=== PATIENT | female | born 1965 | race African-American/Black ===

== ENCOUNTER → 2017-07-10 | Outpatient (CLI) | payer BC ==
--- NOTE | 2017-07-10 13:03 | CARD ---
APPROVED REPORT EXAM: Two-dimensional and M-mode echocardiogram with Doppler and color Doppler. Other Information Quality : GoodHR: 58bpm Rhythm : Bradycardia INDICATION Abnormal ECG RISK FACTORS Hypertension 2D DIMENSIONS RVDd3.0 (2.9-3.5cm)Left Atrium(2D)3.6 (1.6-4.0cm) IVSd1.0 (0.7-1.1cm)Aortic Root(2D)2.7 (2.0-3.7cm) LVDd4.2 (3.9-5.9cm)LVOT Diameter2.2 (1.8-2.4cm) PWd1.0 (0.7-1.1cm)LVDs2.8 (2.5-4.0cm) FS (%) 33.6 %SV49.4 ml LVEF(%)62.8 (>50%) Aortic Valve AoV Peak Jaylen.150.4cm/sAoV VTI33.6cm AO Peak GR.9.1mmHgLVOT Peak Jaylen.113.7cm/s AO Mean GR.5mmHgAVA (VMAX)2.76cm2 AI P 1/2 Xekx148va Mitral Valve MV E Dwfkmviq99.3cm/sMV E Peak Gr.4mmHg MV DECEL [id number] A Qmpjqmrz879.4cm/s MV E Mean Gr.2mmHgE/A Ratio0.7 MV A Owrrczct04ji Pulmonary Valve PV Peak Utgkrfxd06.8cm/s Tricuspid Valve TR P. Wggojkhv906ne/sTR Peak Gr.28mmHg Pulmonary Vein S1 Wnshsxzn15.9cm/sD2 Bgpiychl97.7cm/s PVa [id number] LEFT VENTRICLE The left ventricle is normal size. There is normal left ventricular wall thickness. The left ventricu lar systolic function is normal. The Ejection Fraction is 60-65%. There is normal LV segmental wall m otion. Transmitral Doppler flow pattern is Grade I-abnormal relaxation pattern. RIGHT VENTRICLE The right ventricle is normal size. There is normal right ventricular wall thickness. The right ventr icular systolic function is normal. ATRIA The left atrium size is normal. The right atrium size is normal. The interatrial septum is intact wit h no evidence for an atrial septal defect or patent foramen ovale as noted on 2-D or Doppler imaging. AORTIC VALVE The aortic valve is mildly thickened. The aortic valve is trileaflet. Doppler and Color Flow revealed mild aortic regurgitation. There is no significant aortic valvular stenosis. MITRAL VALVE The mitral valve leaflets are mildly thickened. There is no evidence of mitral valve prolapse. There is no mitral valve stenosis. Doppler and Color Flow revealed mild mitral regurgitation. TRICUSPID VALVE Doppler and Color Flow revealed mild to moderate tricuspid regurgitation. The pulmonary artery systol ic pressure is estimated at 31 mmHg. There is mild pulmonary hypertension. PULMONIC VALVE The pulmonic valve is not well visualized but appears to open adequately. Doppler and Color Flow reve aled mild pulmonic valvular regurgitation. There is no pulmonic valvular stenosis by spectral Doppler . GREAT VESSELS The aortic root is normal in size. The ascending aorta is normal in size. The pulmonary artery is nor mal. The IVC is normal in size and collapses >50% with inspiration. PERICARDIAL EFFUSION There is no evidence of significant pericardial effusion. Critical Notification Critical Value: No <Conclusion> The left ventricular systolic function is normal. The Ejection Fraction is 60-65%. There is normal LV segmental wall motion. Transmitral Doppler flow pattern is Grade I-abnormal relaxation pattern. Mild aortic regurgitation. Mild mitral regurgitation. Mild to moderate tricuspid regurgitation. The pulmonary artery systolic pressure is estimated at 31 mmHg. There is no evidence of significant pericardial effusion.
== END | disposition home or self-care (01) ==
LOC: ECHO 11:12
PROVIDERS: ATTEND Internal Medicine Cardiovascular Disease
DX: I08.3 Combined rheumatic disorders of mitral, aortic and tricuspid valves (principal); R94.31 Abnormal electrocardiogram [ECG] [EKG]; R00.1 Bradycardia, unspecified
CPT/HCPCS: 93225; 93306

== ENCOUNTER 2018-06-22 14:25 | Inpatient (IN) | payer BC ==
[2018-06-22 15:11] LABS: ANION GAP 14 (6-14); BLOOD UREA NITROGEN 46 mg/dL (7-20); BUN/CREATININE RATIO 9 (6-20); CALCIUM 9.5 mg/dL (8.5-10.1); CARBON DIOXIDE 21 mmol/L (21-32); CHLORIDE 105 mmol/L (98-107); CREATININE 5.3 mg/dL (0.6-1.0); GFR 10.3; GLUCOSE 97 mg/dL (70-99); POTASSIUM 3.2 mmol/L (3.5-5.1); SODIUM 140 mmol/L (136-145)
[2018-06-22 15:17] LABS: ALBUMIN 3.1 g/dL (3.4-5.0); ALBUMIN/GLOBULIN RATIO 0.8 (1.0-1.7); ALK PHOS 292 U/L (46-116); ALT (SGPT) 97 U/L (14-59); AST (SGOT) 72 U/L (15-37); MAGNESIUM 1.9 mg/dL (1.8-2.4); TOTAL BILIRUBIN 0.4 mg/dL (0.2-1.0); TOTAL PROTEIN 7.1 g/dL (6.4-8.2)
[2018-06-22 15:22] LABS: ADD MAN DIFF? NO
[2018-06-22 15:27] LABS: NT-PRO BNP 27656 pg/mL (0-124)
[2018-06-22 15:27] LABS: CKMB INDEX 1.3 % (0-4); CKMB MASS 2.2 ng/mL (0.0-3.6); CREATINE KINASE 164 U/L (26-192)
[2018-06-22 15:28] LABS: BASO # 0.1 x10^3/uL (0.0-0.2); BASO % 1 % (0-3); EOS # 0.2 x10^3/uL (0.0-0.7); EOS % 2 % (0-3); HEMATOCRIT 28.6 % (36.0-47.0); HEMOGLOBIN 9.4 g/dL (12.0-15.5); LYMPH # 1.3 x10^3/uL (1.0-4.8); LYMPH % 17 % (24-48); MEAN CORPUSCULAR HEMOGLOBIN 28 pg (25-35); MEAN CORPUSCULAR HGB CONC 33 g/dL (31-37); MEAN CORPUSCULAR VOLUME 85 fL (79-100); MONO # 0.7 x10^3/uL (0.0-1.1); MONO % 9 % (0-9); NEUT # 5.8 x10^3uL (1.8-7.7); NEUT % 72 % (31-73); PLATELET COUNT 239 x10^3/uL (140-400); RED BLOOD COUNT 3.38 x10^6/uL (3.50-5.40); RED CELL DISTRIBUTION WIDTH 17.4 % (11.5-14.5); WHITE BLOOD COUNT 8.2 x10^3/uL (4.0-11.0)
[2018-06-22 15:36] LABS: INR 1.1 (0.8-1.1); PROTHROMBIN TIME PATIENT 13.2 SEC (11.7-14.0)
[2018-06-22] MEDS: cloNIDine HCL 0.1 MG TABLET PO (15:36)
[2018-06-22] MEDS: LABETALOL 20 MG/4 ML DISP.SYRIN. IVP (15:37)
[2018-06-22] MEDS: NITROGLYCERIN PREMIX 250 ML IV (15:45)
[2018-06-22] MEDS: FUROSEMIDE 40 MG/4 ML VIAL. IVP (16:07)
[2018-06-22 17:02] LABS: BILIRUBIN,URINE NEGATIVE (NEG); CLARITY,URINE CLEAR; COLOR,URINE YELLOW; GLUCOSE,URINE NEGATIVE (NEG); NITRITE,URINE NEGATIVE (NEG); PROTEIN,URINE >=300 mg/dL (NEG-TRACE); UROBILINOGEN,URINE 0.2 mg/dL (0.2 mg/dL)
[2018-06-22 17:06] LABS: BACTERIA,URINE MANY /HPF (0-FEW); RBC,URINE OCC /HPF (0-2); SQUAMOUS EPITHELIAL CELL,UR FEW /LPF
[2018-06-22] MEDS: ACETAMINOPHEN 325 MG TABLET. PO (17:51)
[2018-06-22 19:48] LABS: BARBITURATES NEG (NEG); BENZODIAZEPINES NEG (NEG); CANNABINOIDS NEG (NEG); COCAINE NEG (NEG); METHADONE NEG (NEG); OPIATES NEG (NEG); PHENCYCLIDINE NEG (NEG)
[2018-06-22 19:49] LABS: AMPHETAMINE/METHAMPHETAMINE NEG (NEG); ETHANOL, URINE NEG (NEG)
[2018-06-22] MEDS ORDERED: NON FORMULARY ITEM (Albuterol Sulfate (Proair Hfa Inhaler) 2 PUFF) INH (20:00)
[2018-06-22] MEDS: cloNIDine HCL 0.3 MG TABLET PO (20:26)
[2018-06-22] MEDS ORDERED: hydrALAZINE 25 MG TABLET PO (21:00)
[2018-06-22] MEDS: hydrALAZINE 25 MG TABLET PO (21:09)
[2018-06-22] MEDS: ISOSORBIDE DINITRATE 10 MG TABLET. PO (21:09)
[2018-06-22] MEDS: hydrALAZINE 20 MG/ML VIAL. IVP (22:42)
[2018-06-23] MEDS: ALBUTEROL SULFATE 2.5 MG/3 ML NEBU. NEB ×5 (00:40→20:00)
[2018-06-23] MEDS: hydrALAZINE 20 MG/ML VIAL. IVP ×3 (03:54→15:51)
[2018-06-23] MEDS: ACETAMINOPHEN 500 MG TABLET PO ×2 (05:01→14:25)
[2018-06-23 06:31] LABS: ANION GAP 15 (6-14); BLOOD UREA NITROGEN 52 mg/dL (7-20); CALCIUM 8.7 mg/dL (8.5-10.1); CARBON DIOXIDE 21 mmol/L (21-32); CHLORIDE 104 mmol/L (98-107); CREATININE 5.2 mg/dL (0.6-1.0); GFR 10.5; GLUCOSE 101 mg/dL (70-99); POTASSIUM 3.2 mmol/L (3.5-5.1); SODIUM 140 mmol/L (136-145)
[2018-06-23] MEDS: amLODIPine BESYLATE 10 MG TABLET PO (07:52)
[2018-06-23] MEDS: ISOSORBIDE DINITRATE 10 MG TABLET. PO (07:52)
[2018-06-23] MEDS: cloNIDine HCL 0.3 MG TABLET PO ×2 (07:53→20:49)
[2018-06-23] MEDS: hydrALAZINE 25 MG TABLET PO ×3 (07:53→20:49)
[2018-06-23] MEDS: IV NORMAL SALINE 1000ML BAG 1,000 ML IV ×2 (07:54→20:50)
[2018-06-23] MEDS: POTASSIUM CHLORIDE 10 MEQ TABLET.ER. PO (07:54)
[2018-06-23] MEDS: BUDESONIDE 0.5 MG/2 ML NEBU. NEB ×2 (08:00→20:00)
[2018-06-23] MEDS: ALLOPURINOL 300 MG TABLET. PO (08:49)
[2018-06-23] MEDS: LABETALOL HCL 100 MG TABLET. PO ×2 (10:13→16:09)
[2018-06-23 19:19] LABS: TOTAL PROTEIN CREATININE RATIO 2894 mg/g creat (0-200); UR CREATININE RD 66.3 mg/dL (Not Estab.); UR PROTEIN RD 191.9 mg/dL (Not Estab.)
[2018-06-23] MEDS: LABETALOL HCL 200 MG TABLET PO (20:49)
[2018-06-24 05:06] LABS: ANION GAP 12 (6-14); BLOOD UREA NITROGEN 51 mg/dL (7-20); CALCIUM 8.4 mg/dL (8.5-10.1); CARBON DIOXIDE 21 mmol/L (21-32); CHLORIDE 109 mmol/L (98-107); CREATININE 5.2 mg/dL (0.6-1.0); GFR 10.5; GLUCOSE 116 mg/dL (70-99); POTASSIUM 3.6 mmol/L (3.5-5.1); SODIUM 142 mmol/L (136-145)
[2018-06-24] MEDS: IV NORMAL SALINE 1000ML BAG 1,000 ML IV ×2 (07:00→16:28)
[2018-06-24] MEDS: BUDESONIDE 0.5 MG/2 ML NEBU. NEB ×2 (07:01→19:53)
[2018-06-24] MEDS: ALBUTEROL SULFATE 2.5 MG/3 ML NEBU. NEB ×4 (07:01→19:53)
[2018-06-24] MEDS: hydrALAZINE 20 MG/ML VIAL. IVP (08:04)
[2018-06-24] MEDS: amLODIPine BESYLATE 10 MG TABLET PO (08:25)
[2018-06-24] MEDS: cloNIDine HCL 0.3 MG TABLET PO ×3 (08:25→20:57)
[2018-06-24] MEDS: REGADENOSON 0.4 MG/5 ML DISP.SYRIN. IV (08:30)
[2018-06-24 08:55] LABS: CHOLESTEROL 174 mg/dL (0-200); HDLC 50 mg/dL (40-60); LDLC 94 mg/dL (0-100); NON-HDL CHOLESTEROL 124 mg/dL (0-129); TRIGLYCERIDES 152 mg/dL (0-150); VLDLC 30 mg/dL (0-40)
[2018-06-24] MEDS ORDERED: REGADENOSON 0.4 MG/5 ML DISP.SYRIN. IV (09:00)
[2018-06-24 09:02] LABS: CHOLESTEROL/HDL RATIO 3.5
[2018-06-24] MEDS: ALPRAZolam 0.5 MG TABLET PO (09:38)
[2018-06-24] MEDS: CETIRIZINE HCL 10 MG TABLET. PO (11:41)
[2018-06-24] MEDS: LABETALOL HCL 200 MG TABLET PO ×3 (11:42→20:58)
[2018-06-24] MEDS: POTASSIUM CHLORIDE 10 MEQ TABLET.ER. PO (11:42)
[2018-06-25] MEDS: IV NORMAL SALINE 1000ML BAG 1,000 ML IV ×3 (00:08→19:45)
[2018-06-25 05:22] LABS: HEMATOCRIT 25.7 % (36.0-47.0); HEMOGLOBIN 8.3 g/dL (12.0-15.5); MEAN CORPUSCULAR HEMOGLOBIN 28 pg (25-35); MEAN CORPUSCULAR HGB CONC 32 g/dL (31-37); MEAN CORPUSCULAR VOLUME 87 fL (79-100); PLATELET COUNT 227 x10^3/uL (140-400); RED BLOOD COUNT 2.95 x10^6/uL (3.50-5.40); RED CELL DISTRIBUTION WIDTH 18.2 % (11.5-14.5); WHITE BLOOD COUNT 7.6 x10^3/uL (4.0-11.0)
[2018-06-25 05:43] LABS: ANION GAP 11 (6-14); BLOOD UREA NITROGEN 50 mg/dL (7-20); CALCIUM 8.3 mg/dL (8.5-10.1); CARBON DIOXIDE 16 mmol/L (21-32); CHLORIDE 111 mmol/L (98-107); CREATININE 5.1 mg/dL (0.6-1.0); GFR 10.7; GLUCOSE 119 mg/dL (70-99); SODIUM 138 mmol/L (136-145)
[2018-06-25] MEDS: cloNIDine HCL 0.3 MG TABLET PO ×3 (06:13→20:13)
[2018-06-25] MEDS: ALBUTEROL SULFATE 2.5 MG/3 ML NEBU. NEB ×4 (07:17→19:10)
[2018-06-25] MEDS: BUDESONIDE 0.5 MG/2 ML NEBU. NEB ×2 (07:17→19:10)
[2018-06-25] MEDS: amLODIPine BESYLATE 10 MG TABLET PO (09:03)
[2018-06-25] MEDS: LABETALOL HCL 200 MG TABLET PO ×2 (09:04→20:13)
[2018-06-25] MEDS ORDERED: LIDOCAINE 2% 20 ML VIAL. (11:09)
[2018-06-25] MEDS ORDERED: IODIXANOL 320 MG/ML 100 ML VIAL. (11:09)
[2018-06-25] MEDS ORDERED: VERAPAMIL 5 MG/2 ML VIAL. (11:38)
[2018-06-25] MEDS ORDERED: HEPARIN for IV BOLUS 10,000 UNIT/10 ML VIAL. ×2 (11:38→14:53)
[2018-06-25] MEDS ORDERED: MIDAZOLAM HCL/PF 2 MG/2 ML VIAL. (11:38)
[2018-06-25] MEDS ORDERED: NITROGLYCERIN 200 MCG/2 ML SYRINGE FOR CATH/VASC LAB. (11:38)
[2018-06-25] MEDS ORDERED: fentaNYL PF VIAL 100 MCG/2 ML VIAL (11:38)
[2018-06-25] MEDS ORDERED: CONTRAST GIVEN. MC (12:15)
[2018-06-25] MEDS: NITROGLYCERIN 200 MCG/2 ML SYRINGE FOR CATH/VASC LAB. IART (12:19)
[2018-06-25] MEDS: LIDOCAINE 2% 20 ML VIAL. IJ (12:19)
[2018-06-25] MEDS: IODIXANOL 320 MG/ML 100 ML VIAL. IART (12:19)
[2018-06-25] MEDS: VERAPAMIL 5 MG/2 ML VIAL. IART (12:21)
[2018-06-25] MEDS: MIDAZOLAM HCL/PF 2 MG/2 ML VIAL. IV (12:21)
[2018-06-25] MEDS: fentaNYL PF VIAL 100 MCG/2 ML VIAL IV (12:21)
[2018-06-25] MEDS: HEPARIN for IV BOLUS 10,000 UNIT/10 ML VIAL. IART (12:22)
[2018-06-25] MEDS: CETIRIZINE HCL 10 MG TABLET. PO (13:47)
[2018-06-25] MEDS ORDERED: LIDOCAINE WITH 8.4% SOD BICARB 3 ML DISP.SYRIN. (14:51)
[2018-06-25] MEDS: LIDOCAINE WITH 8.4% SOD BICARB 3 ML DISP.SYRIN. INJ (15:12)
[2018-06-26 05:21] LABS: ANION GAP 12 (6-14); BLOOD UREA NITROGEN 46 mg/dL (7-20); CALCIUM 8.4 mg/dL (8.5-10.1); CARBON DIOXIDE 19 mmol/L (21-32); CHLORIDE 111 mmol/L (98-107); CREATININE 4.9 mg/dL (0.6-1.0); GFR 11.3; GLUCOSE 125 mg/dL (70-99); POTASSIUM 3.9 mmol/L (3.5-5.1); SODIUM 142 mmol/L (136-145)
[2018-06-26] MEDS: cloNIDine HCL 0.3 MG TABLET PO ×3 (05:35→21:34)
[2018-06-26] MEDS: IV NORMAL SALINE 1000ML BAG 1,000 ML IV (05:35)
[2018-06-26] MEDS: ALBUTEROL SULFATE 2.5 MG/3 ML NEBU. NEB ×4 (08:35→20:25)
[2018-06-26] MEDS: BUDESONIDE 0.5 MG/2 ML NEBU. NEB ×2 (08:35→20:25)
[2018-06-26] MEDS: CETIRIZINE HCL 10 MG TABLET. PO (09:26)
[2018-06-26 10:18] LABS: HEPATITIS B SURFACE AG Nonreactive (Nonreactive)
[2018-06-26 10:37] LABS: HEPATITIS B SURFACE AB Nonreactive
[2018-06-26] MEDS: LABETALOL HCL 200 MG TABLET PO ×2 (12:55→21:34)
[2018-06-26] MEDS: amLODIPine BESYLATE 10 MG TABLET PO (12:56)
[2018-06-26] MEDS: SODIUM BICARBONATE 650 MG TABLET. PO ×2 (15:12→21:31)
[2018-06-26] MEDS: FUROSEMIDE 80 MG TABLET. PO (15:14)
[2018-06-26 16:28] LABS: ALBUMIN 2.3 g/dL (3.4-5.0)
[2018-06-27 05:36] LABS: PHOSPHORUS 5.5 mg/dL (2.6-4.7)
[2018-06-27 05:36] LABS: MAGNESIUM 1.9 mg/dL (1.8-2.4)
[2018-06-27] MEDS: cloNIDine HCL 0.3 MG TABLET PO ×3 (06:48→20:35)
[2018-06-27] MEDS: BUDESONIDE 0.5 MG/2 ML NEBU. NEB ×2 (07:27→19:40)
[2018-06-27] MEDS: ALBUTEROL SULFATE 2.5 MG/3 ML NEBU. NEB ×4 (07:27→19:40)
[2018-06-27] MEDS: FUROSEMIDE 80 MG TABLET. PO ×3 (09:00→16:49)
[2018-06-27 09:58] LABS: ANION GAP 16 (6-14); BLOOD UREA NITROGEN 52 mg/dL (7-20); CALCIUM 8.7 mg/dL (8.5-10.1); CARBON DIOXIDE 14 mmol/L (21-32); CHLORIDE 109 mmol/L (98-107); CREATININE 5.5 mg/dL (0.6-1.0); GFR 9.8; GLUCOSE 125 mg/dL (70-99); SODIUM 139 mmol/L (136-145)
[2018-06-27] MEDS: amLODIPine BESYLATE 10 MG TABLET PO (10:12)
[2018-06-27] MEDS: CETIRIZINE HCL 10 MG TABLET. PO (10:14)
[2018-06-27] MEDS: SODIUM BICARBONATE 650 MG TABLET. PO ×3 (10:14→20:33)
[2018-06-27] MEDS: LABETALOL HCL 200 MG TABLET PO ×2 (10:15→20:34)
[2018-06-27] MEDS: SODIUM BICARB ADULT 8.4% 50 MEQ/50 ML DISP.SYRIN. IV ×2 (12:06→14:45)
[2018-06-27] MEDS: CALCIUM ACETATE 667 MG CAPSULE PO ×2 (12:07→16:50)
[2018-06-27 12:17] LABS: RETIC COUNT 0.6 % (0.5-2.5)
[2018-06-27 12:27] LABS: % SAT IRON 9 % (15-34); IRON,SERUM 24 ug/dL (50-170)
[2018-06-27 12:43] LABS: FERRITIN 78 ng/mL (8-252)
[2018-06-27 14:12] LABS: CALCIUM PTH 8.4 mg/dL (8.7-10.2); CREATININE PTH 4.78 mg/dL (0.57-1.00); PHOSPHORUS PTH 5.3 mg/dL (2.5-4.5); PTH INTACT 157 pg/mL (15-65); eGFR AFRICAN-AMER 11 (>59); eGFR NON AFRICAN-AMER 10 (>59)
[2018-06-27] MEDS: DARBEPOETIN ALFA 60 MCG/0.3 ML DISP.SYRIN. SQ (20:35)
[2018-06-28 05:25] LABS: ALBUMIN 2.4 g/dL (3.4-5.0); ANION GAP 12 (6-14); BLOOD UREA NITROGEN 47 mg/dL (7-20); CALCIUM 8.7 mg/dL (8.5-10.1); CARBON DIOXIDE 25 mmol/L (21-32); CHLORIDE 105 mmol/L (98-107); CREATININE 5.2 mg/dL (0.6-1.0); GFR 10.5; GLUCOSE 119 mg/dL (70-99); MAGNESIUM 1.7 mg/dL (1.8-2.4); PHOSPHORUS 5.1 mg/dL (2.6-4.7); POTASSIUM 3.3 mmol/L (3.5-5.1); SODIUM 142 mmol/L (136-145)
[2018-06-28] MEDS: cloNIDine HCL 0.3 MG TABLET PO ×2 (06:27→13:24)
[2018-06-28] MEDS: ALBUTEROL SULFATE 2.5 MG/3 ML NEBU. NEB ×2 (07:51→11:42)
[2018-06-28] MEDS: BUDESONIDE 0.5 MG/2 ML NEBU. NEB (07:51)
[2018-06-28] MEDS: SODIUM BICARBONATE 650 MG TABLET. PO ×2 (08:02→13:25)
[2018-06-28] MEDS: CALCIUM ACETATE 667 MG CAPSULE PO ×2 (08:02→12:05)
[2018-06-28] MEDS: LABETALOL HCL 200 MG TABLET PO (08:03)
[2018-06-28] MEDS: amLODIPine BESYLATE 10 MG TABLET PO (08:04)
[2018-06-28] MEDS: FUROSEMIDE 80 MG TABLET. PO ×2 (08:04→13:24)
[2018-06-28] MEDS: CETIRIZINE HCL 10 MG TABLET. PO (08:04)
[2018-07-01 03:18] LABS: ALDOSTERONE 10.3 ng/dL (0.0-30.0); ALDOSTERONE/RENIN RATIO 7.1 (0.0-30.0)
== END 2018-06-28 14:20 | disposition home or self-care (01) | DRG 286 ==
LOC: ER 14:25 → 2 NORTH 16:20
PROC: 02HV33Z Insertion of Infusion Device into Superior Vena Cava, Percutaneous Approach (ICD-10-PCS; principal; 2018-06-25)
PROC: B548ZZA Ultrasonography of Superior Vena Cava, Guidance (ICD-10-PCS; 2018-06-25)
PROC: 4A023N7 Measurement of Cardiac Sampling and Pressure, Left Heart, Percutaneous Approach (ICD-10-PCS; 2018-06-25)
PROC: B2111ZZ Fluoroscopy of Multiple Coronary Arteries using Low Osmolar Contrast (ICD-10-PCS; 2018-06-25)
DX: I13.2 Hypertensive heart and chronic kidney disease with heart failure and with stage 5 chronic kidney disease, or end stage renal disease (principal); I50.43 Acute on chronic combined systolic (congestive) and diastolic (congestive) heart failure; N18.6 End stage renal disease; N17.9 Acute kidney failure, unspecified; I16.1 Hypertensive emergency; J45.909 Unspecified asthma, uncomplicated; D64.9 Anemia, unspecified; M10.9 Gout, unspecified; Z88.8 Allergy status to other drugs, medicaments and biological substances; Z79.51 Long term (current) use of inhaled steroids; Z79.899 Other long term (current) drug therapy; Z82.49 Family history of ischemic heart disease and other diseases of the circulatory system; Z83.3 Family history of diabetes mellitus; Z91.15 Patient's noncompliance with renal dialysis
CPT/HCPCS: 36415; 36556; 71045; 71046; 76770; 76937; 78452; 80048; 80053; 80061; 80069; 80307; 81001; 82040; 82553; 82570; 82728; 83540; 83550; 83735; 83880; 83970; 84100; 84156; 84484; 85025; 85027; 85045; 85610; 86706; 87086; 87340; 93005; 93017; 93306; 93454; 93975; 94640; 94760; 96374; 96375; 96376; 99152; 99285; 99285-25; A4215; A9500; C1769; C1892; J0360; J1644; J1940; J2001; J2250; J2785; J3010; J3490; J7030; J7613; J7626

== ENCOUNTER → 2019-02-22 | Outpatient (CLI) | payer BC, OTHER ==
[2019-02-07 13:40] VITALS: BP 189/110
[~2019-02-22] MED LIST: ALBU2.5V5 NEB; ALBU2.5V8 INH; ALBUTEROL SULFATE 2.5 MG/3 ML NEBU. NEB ONE; ALLO300T PO; AMLO10TA8 PO; BUDE0.5A NEB; CETI10TA16 PO; CLON0.3T PO; FURO80TA3 PO; HYDR-2869 PO; ISOS1TAB2 PO; LABE200T4 PO; POTA10TA12 PO; SODI650T PO
== END | disposition home or self-care (01) ==
LOC: PF 08:00
PROVIDERS: ATTEND Surgery
DX: J45.909 Unspecified asthma, uncomplicated (principal)
CPT/HCPCS: 94060; 94640; 94729; J7613

== ENCOUNTER → 2019-02-22 | Outpatient (CLI) | payer BC, OTHER ==
[2019-02-07 13:40] VITALS: BP 189/110
[~2019-02-22] MED LIST changes: -ALBUTEROL SULFATE 2.5 MG/3 ML NEBU. NEB ONE
--- NOTE | 2019-02-22 09:47 | RAD ---
Chest, 2 views, 02/22/2019: HISTORY: Shortness of breath Comparison is made to a study from 06/27/2018. The heart is moderately enlarged. There is mild ectasia of the thoracic aorta. The pulmonary vascularity is normal. There is minimal left basilar scarring. No acute infiltrate is seen. There is no evidence of pleural fluid. IMPRESSION: 1. Cardiomegaly. 2. Mild left basilar scarring. 3. No acute infiltrates. Electronically signed by: Jerry Sesay MD (02/22/2019 9:44 AM) [facility]
== END | disposition home or self-care (01) ==
LOC: RAD 08:11
PROVIDERS: ATTEND Surgery
DX: I51.7 Cardiomegaly (principal); J98.4 Other disorders of lung; I77.810 Thoracic aortic ectasia
CPT/HCPCS: 71046